=== PATIENT | male | born 1990 | race African-American/Black ===

== ENCOUNTER 2017-09-10 06:06 | Emergency (ER) | payer OTHER ==
--- NOTE | 2017-09-10 08:54 | XRAY Report ---
Procedure Date: 09/10/2017 Accession Number: [id number] / [id number] Procedure: XR - Foot 3 View LT CPT Code: FULL RESULT: EXAM: LEFT FOOT RADIOGRAPHY EXAM DATE: 09/10/2017 08:43 AM. CLINICAL HISTORY: Lateral pain. COMPARISON: None. TECHNIQUE: 3 views. FINDINGS: Bones: Normal. No fractures or bone lesions. Joints: Normal. No subluxations. Soft Tissues: Normal. No soft tissue swelling. IMPRESSION: Normal foot radiography. [facility]
--- NOTE | 2017-09-10 09:11 | ED Physician Documentation ---
PD HPI LOWER EXT INJURY - Stated complaint Stated Complaint: LEFT FOOT PX - Chief complaint Chief Complaint: Ext Problem - History obtained from History obtained from: Patient, Family - History of Present Illness PD HPI LOW EXT INJURY LOCATION: Left, Foot Where injury occurred: Home Timing - onset: Today Timing - duration: Hours Timing - details: Abrupt onset, Still present Improved by: Rest Worsened by: Moving, Palpating Associated symptoms: No: Weakness, Numbness, Tingling, Swelling Contributing factors: No: Anticoagulated Similar symptoms before: Diagnosis (plantar faciiitis) Recently seen: Not recently seen - Additional information Additional information: 27-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 Today he has had some pain in the lateral aspect of his foot and the pain in his bottom of his foot is worse than usual. He is even having trouble walking. Review of Systems Constitutional: denies: Fever Eyes: denies: Decreased vision Ears: denies: Ear pain Nose: denies: Congestion Throat: denies: Sore throat Respiratory: denies: Cough GI: denies: Vomiting Skin: denies: Rash Musculoskeletal: reports: Extremity pain, Pain with weight bearing. denies: Neck pain, Back pain Neurologic: denies: Generalized weakness, Focal weakness, Numbness PD PAST MEDICAL HISTORY - Past Medical History Past Medical History: No - Past Surgical History Past Surgical History: No - Allergies Allergies/Adverse Reactions: Allergies Allergy/AdvReac Type Severity Reaction Status Date / Time No Known Drug Allergies Allergy Verified 09/10/17 06:39 - Social History Does the pt smoke?: Yes Smoking Status: Current some day smoker Does the pt drink ETOH?: No Does the pt have substance abuse?: No - Immunizations Immunizations are current?: Yes - POLST Patient has POLST: No PD ED PE NORMAL - Vitals Vital signs reviewed: Yes (normal ) - General General: Alert and oriented X 3, No acute distress, Well developed/nourished - HEENT HEENT: Atraumatic, PERRL - Neck Neck: Supple, no meningeal sign - Respiratory Respiratory: No respiratory distress - Derm Derm: Normal color, Warm and dry, No rash - Extremities Extremities: No deformity, No edema, Other (mild tenderness to the plantar fascia) - Neuro Neuro: Alert and oriented X 3, No motor deficit, No sensory deficit, Normal speech Eye Opening: Spontaneous Motor: Obeys Commands Verbal: Oriented GCS Score: 15 - Psych Psych: Normal mood, Normal affect Results - Vitals Vitals: Vital Signs - 24 hr 09/10/17 06:10 Temperature 36.3 C L Heart Rate 64 Respiratory 14 Rate Blood Pressure 128/81 H O2 Saturation 98 Oxygen O2 Source Room air - Rads (name of study) foot Radiology: Prelim report reviewed (Impression: Normal foot radiography.), EMP read indepedently, See rad report PD MEDICAL DECISION MAKING - ED course Complexity details: reviewed results, re-evaluated patient, considered differential, d/w patient, d/w family ED course: 27-year-old male with a history of plantar fasciitis his worsening of his symptoms today he is administered dexamethasone 10 mg orally and given instructions on treatment of plantar fasciitis. - Sepsis Event Vital Signs: Vital Signs - 24 hr 09/10/17 06:10 Temperature 36.3 C L Heart Rate 64 Respiratory 14 Rate Blood Pressure 128/81 H O2 Saturation 98 Oxygen O2 Source Room air Departure - Departure Disposition: Home, Self Care Clinical Impression: Plantar fasciitis of left foot Condition: Stable Instructions: ED Plantar Fasciitis Follow-Up: MENDEL HILARIO MD [Primary Care Provider] -
[2017-09-10] MEDS ORDERED: DEXAMETHASONE 10 MG/ML VIAL PO STA (09:15)
[2017-09-10] MEDS ORDERED: CHERRY SYRUP 10 ML UDC PO ONE (09:31)
[2017-09-10 09:46] VITALS: BP 125/78
== END 2017-09-10 09:46 | disposition home or self-care (01) ==
LOC: ED 06:06
DX: M72.2 Plantar fascial fibromatosis (principal); F17.200 Nicotine dependence, unspecified, uncomplicated
CPT/HCPCS: 73630; 99283; A9270

== ENCOUNTER 2018-03-02 05:32 | Emergency (ER) | payer OTHER ==
[2018-03-02] MEDS ORDERED: KETOROLAC 60 MG/2 ML VIAL IVP STA (05:54)
[2018-03-02] MEDS ORDERED: SODIUM CHLORIDE 0.9% 1,000 ML IV ONE (05:54)
[2018-03-02] MEDS ORDERED: ONDANSETRON 4 MG/2 ML VIAL IVP STA (05:54)
--- NOTE | 2018-03-02 06:07 | ED Physician Documentation ---
PD HPI ABD PAIN - Stated complaint Stated Complaint: LIGHTHEADED/NAUSEATED - Chief complaint Chief Complaint: Neuro - History obtained from History obtained from: Patient - History of Present Illness Timing - onset: How many hours ago (1) Timing - details: Still present Quality: Cramping Location: All over / everywhere Associated symptoms: Nausea, Vomiting, Other (lightheaded) Similar symptoms before: Has not had sx before - Additional information Additional information: The patient is a 28-year-old male who presents with abdominal cramping pain, nausea and vomiting, that started about 1 hour prior to arrival. He reports associated lightheadedness. He denies diarrhea, fever, or dysuria. He last ate about 8 PM last night. No other family members are ill. He denies history of similar symptoms in the past. Review of Systems Constitutional: reports: Other (lightheaded). denies: Fever Ears: denies: Tinnitus/ringing Nose: denies: Congestion Throat: denies: Sore throat Cardiac: denies: Chest pain / pressure Respiratory: denies: Dyspnea, Cough GI: reports: Abdominal Pain, Nausea, Vomiting. denies: Diarrhea : denies: Dysuria Skin: denies: Rash Musculoskeletal: denies: Back pain, Extremity pain Neurologic: denies: Focal weakness, Numbness, Headache PD PAST MEDICAL HISTORY - Past Medical History Past Medical History: Yes Endocrine/Autoimmune: None Other Past Medical History: G6PD deficient - Past Surgical History Past Surgical History: No - Present Medications Home Medications: Ambulatory Orders Medication Instructions Recorded Confirmed Promethazine [Phenergan] 25 mg PO Q6H PRN #10 tab 03/02/18 raNITIdine [Zantac] 150 mg PO DAILY #30 tablet 03/02/18 - Allergies Allergies/Adverse Reactions: Allergies Allergy/AdvReac Type Severity Reaction Status Date / Time aspirin Allergy Unknown Verified 03/02/18 05:39 - Social History Does the pt smoke?: Yes Smoking Status: Current every day smoker Does the pt drink ETOH?: No Does the pt have substance abuse?: No - Immunizations Immunizations are current?: Yes - POLST Patient has POLST: No PD ED PE NORMAL - Vitals Vital signs reviewed: Yes (normal) - General General: Alert and oriented X 3, Well developed/nourished - HEENT HEENT: Atraumatic, Moist mucous membranes, Pharynx benign - Neck Neck: Supple, no meningeal sign, No adenopathy, No JVD - Cardiac Cardiac: RRR, No murmur - Respiratory Respiratory: No respiratory distress, Clear bilaterally - Abdomen Abdomen: Normal bowel sounds, Other (Tenderness to palpation of the left upper quadrant, without rebound tenderness or guarding.) - Back Back: No CVA TTP - Derm Derm: No rash - Extremities Extremities: No edema, No calf tenderness / cord - Neuro Neuro: Alert and oriented X 3, No motor deficit, No sensory deficit, Normal speech Results - Vitals Vitals: Vital Signs - 24 hr 03/02/18 03/02/18 05:36 06:51 Temperature 37.0 C Heart Rate 86 72 Respiratory 16 16 Rate Blood Pressure 116/77 118/65 O2 Saturation 98 98 Oxygen O2 Source Room air - Labs Labs: Laboratory Tests 03/02/18 03/02/18 03/02/18 06:05 06:15 06:15 WBC 8.0 RBC 4.70 Hgb 14.8 Hct 44.2 MCV 94.1 H MCH 31.5 H MCHC 33.5 RDW 12.3 Plt Count 243 MPV 7.6 Neut # (Auto) 7.2 H Lymph # (Auto) 0.4 L [place] # (Auto) 0.3 Eos # (Auto) 0.1 Baso # (Auto) 0.0 Absolute Nucleated RBC 0.01 Nucleated RBC % 0.1 Sodium 137 Potassium 3.8 Chloride 103 Carbon Dioxide 27 Anion Gap 7.0 BUN 12 Creatinine 0.9 Estimated GFR (MDRD) 120 Glucose 88 Calcium 9.4 Total Bilirubin 1.1 H AST 25 ALT 21 Alkaline Phosphatase 43 Total Protein 7.7 Albumin 4.8 Globulin 2.9 Albumin/Globulin Ratio 1.7 Lipase 24 Urine Color DARK YELLOW Urine Clarity CLEAR Urine pH 6.0 Ur Specific [place] >=1.030 H Urine Protein NEGATIVE Urine Glucose (UA) NEGATIVE Urine Ketones NEGATIVE Urine Occult Blood NEGATIVE Urine Nitrite NEGATIVE Urine Bilirubin NEGATIVE Urine Urobilinogen 0.2 (NORMAL) Ur Leukocyte Esterase NEGATIVE Ur Microscopic Review NOT INDICATED Urine Culture Comments NOT INDICATED PD MEDICAL DECISION MAKING - ED course Complexity details: reviewed results, re-evaluated patient, considered differential, d/w patient, d/w family ED course: The patient's presentation is most consistent with acid peptic disease versus gastritis. His presentation does not suggest an acute abdomen, pancreatitis, or biliary colic. CBC, chemistry panel, and urinalysis are all unremarkable. Treatment in the emergency department included administration of normal saline 1 L IV, Zofran 4 mg IV, ketorolac 30 mg IV, and GI cocktail orally. His symptoms markedly improved with the above treatment. He is being discharged with prescription for ranitidine and for Phenergan. 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 Departure - Departure Disposition: , Self Care Clinical Impression: Acid pepsin disease Condition: Stable Instructions: ED PUD Vs Gastritis Follow-Up: MENDEL HILARIO MD [Primary Care Provider] - Prescriptions: Promethazine [Phenergan] 25 mg PO Q6H PRN #10 tab PRN Reason: Nausea / Vomiting raNITIdine [Zantac] 150 mg PO DAILY #30 tablet Comments: Minimize coffee, yecenia, and spicy foods. Take ranitidine twice daily as prescribed. You can use liquid antacid, such as Maalox or Mylanta if you develop recurrent symptoms. You can use Phenergan as prescribed if needed for nausea. He should follow-up with your primary physician within 1-2 weeks. Call to schedule an appointment. Return to the emergency department if you develop increasing abdominal pain, persistent vomiting, or otherwise worsening symptoms. Discharge Date/Time: 03/02/18 07:32
[2018-03-02 06:39] LABS: BASOPHILS % (AUTO) 0.1 %; EOSINOPHILS # (AUTO) 0.1 10^3/uL (0.0-0.7); EOSINOPHILS % (AUTO) 1.1 %; HGB - HEMOGLOBIN 14.8 g/dL (14.0-18.0); LYMPHOCYTES # (AUTO) 0.4 10^3/uL (1.5-3.5); LYMPHOCYTES % (AUTO) 5.2 %; MEAN CORPUSCULAR HEMOGLOBIN 31.5 pg (27.0-31.0); MEAN CORPUSCULAR HGB CONC 33.5 g/dL (32.0-36.0); MEAN CORPUSCULAR VOLUME 94.1 fL (80.0-94.0); MEAN PLATELET VOLUME 7.6 fL (7.4-11.4); MONOCYTES # (AUTO) 0.3 10^3/uL (0.0-1.0); MONOCYTES % (AUTO) 3.9 %; NEUTROPHILS # (AUTO) 7.2 10^3/uL (1.5-6.6); NEUTROPHILS % (AUTO) 89.7 %; PLT - PLATELET COUNT 243 10^3/uL (130-450); RED CELL DISTRIBUTION WIDTH 12.3 % (12.0-15.0)
[2018-03-02 06:48] LABS: BILIRUBIN,URINE NEGATIVE (NEGATIVE); GLUCOSE, URINE (UA) NEGATIVE (NEGATIVE); KETONES,URINE (UA) NEGATIVE (NEGATIVE); LEUKOCYTE ESTERASE, URINE NEGATIVE (NEGATIVE); NITRITE,URINE NEGATIVE (NEGATIVE); OCCULT BLOOD,URINE NEGATIVE (NEGATIVE); PROTEIN,URINE NEGATIVE (NEGATIVE); UROBILINOGEN,URINE 0.2 (NORMAL) E.U./dL (NORMAL)
[2018-03-02 06:49] LABS: CLARITY,URINE CLEAR (CLEAR)
[2018-03-02 06:52] VITALS: BP 118/65
[2018-03-02 06:52] LABS: ALBUMIN 4.8 g/dL (3.2-5.5); ALBUMIN/GLOBULIN RATIO 1.7 (1.0-2.2); BILIRUBIN,TOTAL 1.1 mg/dL (0.2-1.0); CALCIUM 9.4 mg/dL (8.5-10.3); CREATININE 0.9 mg/dL (0.6-1.2); TOTAL PROTEIN 7.7 g/dL (6.7-8.2)
[2018-03-02] MEDS ORDERED: LIDOCAINE VISCOUS 2% 15 ML UDC MM STA (07:06)
[2018-03-02] MEDS ORDERED: MAG HYDROX/AL HYDROX/SIMETH 30 ML UDC PO STA (07:06)
== END 2018-03-02 07:32 | disposition home or self-care (01) ==
LOC: ED 05:32
DX: K30 Functional dyspepsia (principal); F17.200 Nicotine dependence, unspecified, uncomplicated
CPT/HCPCS: 36415; 80053; 81003; 83690; 85025; 96361; 96374; 99283; 99284; A9270; 81001; 87086

== ENCOUNTER 2019-03-04 15:25 | Emergency (ER) | payer OTHER ==
[2019-03-04] MEDS: DEXAMETHASONE 10 MG/ML VIAL PO STA (16:18)
[2019-03-04] MEDS: KETOROLAC 60 MG/2 ML VIAL IM STA (16:18)
--- NOTE | 2019-03-04 16:19 | ED Physician Documentation ---
PD HPI BACK PAIN - Stated complaint Stated Complaint: BACK PX - Chief complaint Chief Complaint: Back Pain - History obtained from History obtained from: Patient - History of Present Illness Timing - onset: Today Timing - duration: Days (1) Timing - details: Gradual onset Pain level max: 8 Pain level now: 8 Location: Lower, Right, Left Quality: Pain, Spasm Associated symptoms: No: Fever, Weakness, Numbness, Incontinent of urine, Unable to urinate, Hematuria, Incontinent of stool Improves with: Rest Worsened by: Movement - Additional information Additional information: 29-year-old male states that he has had back spasms intermittently for several years. He states that today he felt something "slip" in his back and then a sudden onset of sharp pain. Feels like his back is spasming. Has not taken anything for this. Worse with movement and better with rest. no trauma. no IVDA. Review of Systems Ten Systems: 10 systems reviewed and negative Constitutional: denies: Fever, Chills GI: denies: Nausea, Vomiting, Diarrhea Skin: denies: Rash Musculoskeletal: denies: Neck pain Neurologic: denies: Focal weakness, Numbness PD PAST MEDICAL HISTORY - Past Medical History Past Medical History: Yes Endocrine/Autoimmune: None - Past Surgical History Past Surgical History: No - Present Medications Home Medications: Ambulatory Orders Medication Instructions Recorded Confirmed Promethazine [Phenergan] 25 mg PO Q6H PRN #10 tab 03/02/18 raNITIdine [Zantac] 150 mg PO DAILY #30 tablet 03/02/18 Cyclobenzaprine [Flexeril] 10 mg PO TID PRN #20 tablet 03/04/19 Meloxicam [Mobic] 15 mg PO DAILY PRN #20 tablet 03/04/19 - Allergies Allergies/Adverse Reactions: Allergies Allergy/AdvReac Type Severity Reaction Status Date / Time aspirin Allergy Unknown Verified 03/04/19 15:46 - Social History Does the pt smoke?: Yes Smoking Status: Current every day smoker Does the pt drink ETOH?: No Does the pt have substance abuse?: No - Immunizations Immunizations are current?: Yes - POLST Patient has POLST: No PD ED PE NORMAL - Vitals Vital signs reviewed: Yes - General General: Alert and oriented X 3, No acute distress, Well developed/nourished - HEENT HEENT: PERRL, Moist mucous membranes - Neck Neck: Supple, no meningeal sign - Cardiac Cardiac: RRR - Respiratory Respiratory: No respiratory distress, Clear bilaterally - Abdomen Abdomen: Soft, Non tender, Non distended - Back Back: No spinal TTP, Other (back spasm B low lumbar. NVI. no step off or deformity.) - Derm Derm: Warm and dry - Extremities Extremities: No edema, Other (Normal bilateral lower extremity patellar and ankle jerk reflexes. Normal great toe extension bilaterally. no saddle anesthesia) - Neuro Neuro: Alert and oriented X 3, No motor deficit, No sensory deficit - Psych Psych: Normal mood, Normal affect Results - Vitals Vitals: Vital Signs - 24 hr 03/04/19 03/04/19 15:44 16:36 Temperature 36.8 C Heart Rate 84 82 Respiratory 14 14 Rate Blood Pressure 130/80 125/78 O2 Saturation 100 100 Oxygen O2 Source Room air PD MEDICAL DECISION MAKING - ED course Complexity details: reviewed results, re-evaluated patient, considered differential (No cauda equina, no spinal epidural abscess, no fracture, no aortic dissection or evidence of aneursym rupture), d/w patient ED course: 29-year-old male presents to the emergency department with back spasm. Will place on muscle relaxants and anti-inflammatories for home. No evidence of cauda equina, epidural abscess. No sciatica. No evidence of fracture. Patient counseled regarding signs and symptoms for which I believe and urgent re-evalua tion would be necessary. Patient with good understanding of and agreement to plan and is comfortable going home at this time This document was made in part using voice recognition software. While efforts are made to proofread this document, sound alike and grammatical errors may occur. Departure - Departure Disposition: 01 Home, Self Care Clinical Impression: Back spasm Condition: Good Instructions: ED Spasm Back No Trauma Follow-Up: MENDEL HILARIO MD [Primary Care Provider] - Within 1 week Prescriptions: Cyclobenzaprine [Flexeril] 10 mg PO TID PRN #20 tablet PRN Reason: Spasms Meloxicam [Mobic] 15 mg PO DAILY PRN #20 tablet PRN Reason: pain Comments: Return if you worsen. Do not drive or operate heavy machinery while on flexeril. This should improve over the next few days. Forms: Activity restrictions Discharge Date/Time: 03/04/19 16:36
[2019-03-04] MEDS: CHERRY SYRUP 10 ML UDC PO ONE (16:23)
[2019-03-04 16:36] VITALS: BP 125/78
== END 2019-03-04 16:36 | disposition home or self-care (01) ==
LOC: ED 15:25
DX: M62.830 Muscle spasm of back (principal); F17.200 Nicotine dependence, unspecified, uncomplicated
CPT/HCPCS: 96372; 99283; 99284; A9270

== ENCOUNTER 2019-04-14 11:10 | Emergency (ER) | payer OTHER ==
[2019-04-14 11:17] VITALS: BP 112/58
[2019-04-14 11:51] LABS: RAPID STREP SCREEN Negative (Negative)
[2019-04-14] MEDS ORDERED: DEXAMETHASONE 10 MG/ML VIAL PO STA (12:41)
[2019-04-14] MEDS ORDERED: CHERRY SYRUP 10 ML UDC PO ONE (12:41)
--- NOTE | 2019-04-14 12:44 | ED Physician Documentation ---
History of Present Illness - Stated complaint Stated Complaint: SORE THROAT - Chief complaint Chief Complaint: Heent - History obtained from History obtained from: Patient - History of Present Illness Timing: How many days ago (2) Pain level max: 7 Pain level now: 5 - Additonal information Additional information: 29-year-old male presents to the emergency department with a sore throat for the past 2 days. Has had subjective fevers at home as well. No cough. No vomiting. Worse with swallowing. Nothing makes it better. No abdominal pain. No rhinorrhea or congestion. Immunizations up-to-date. Otherwise healthy. Review of Systems Constitutional: reports: Fever, Chills Throat: reports: Sore throat Respiratory: denies: Cough, Wheezing GI: denies: Vomiting, Diarrhea Skin: denies: Rash Musculoskeletal: denies: Neck pain, Back pain Neurologic: denies: Headache PD PAST MEDICAL HISTORY - Past Medical History Past Medical History: No Endocrine/Autoimmune: None - Past Surgical History Past Surgical History: No - Present Medications Home Medications: Ambulatory Orders Medication Instructions Recorded Confirmed Promethazine [Phenergan] 25 mg PO Q6H PRN #10 tab 03/02/18 raNITIdine [Zantac] 150 mg PO DAILY #30 tablet 03/02/18 Cyclobenzaprine [Flexeril] 10 mg PO TID PRN #20 tablet 03/04/19 Meloxicam [Mobic] 15 mg PO DAILY PRN #20 tablet 03/04/19 Amox/Clav 875/125 [Augmentin] 1 tab PO Q12H #20 tablet 04/14/19 - Allergies Allergies/Adverse Reactions: Allergies Allergy/AdvReac Type Severity Reaction Status Date / Time aspirin Allergy Unknown Verified 04/14/19 11:13 - Social History Does the pt smoke?: Yes Smoking Status: Current every day smoker Does the pt drink ETOH?: No Does the pt have substance abuse?: No - Family History Family history: reports: Non contributory - Immunizations Immunizations are current?: Yes - POLST Patient has POLST: No PD ED PE NORMAL - Vitals Vital signs reviewed: Yes - General General: Alert and oriented X 3, No acute distress, Well developed/nourished - HEENT HEENT: PERRL, Ears normal, Moist mucous membranes, Other (Posterior pharyngeal erythema with tonsillar exudates. Uvula midline. Normal phonation. No trismus.) - Neck Neck: Supple, no meningeal sign, Other (Shotty anterior lymphadenopathy) - Cardiac Cardiac: RRR - Respiratory Respiratory: Clear bilaterally - Abdomen Abdomen: Soft, Non tender, Non distended - Derm Derm: Warm and dry, No rash - Neuro Neuro: Alert and oriented X 3 - Psych Psych: Normal mood, Normal affect Results - Vitals Vitals: Vital Signs - 24 hr 04/14/19 11:13 Temperature 37.3 C Heart Rate 82 Respiratory 14 Rate Blood Pressure 112/58 L O2 Saturation 96 Oxygen O2 Source Room air - Labs Labs: Laboratory Tests 04/14/19 11:17 Group A Strep Rapid Negative PD MEDICAL DECISION MAKING - ED course Complexity details: reviewed results, considered differential, d/w patient ED course: Patient with what appears to be clinically strep pharyngitis. We will treat him for this. He is well-appearing, nontoxic. Afebrile. Given dexamethasone here. No evidence of a peritonsillar or retropharyngeal abscess. Patient counseled regarding signs and symptoms for which I believe and urgent re- evaluation would be necessary. Patient with good understanding of and agreement to plan and is comfortable going home at this time This document was made in part using voice recognition software. While efforts are made to proofread this document, sound alike and grammatical errors may occur. Departure - Departure Disposition: 01 Home, Self Care Clinical Impression: Pharyngitis Qualifiers: Pharyngitis/tonsillitis etiology: unspecified etiology Qualified Code(s): J02.9 - Acute pharyngitis, unspecified Condition: Good Instructions: ED Strep Pharyngitis Poss Follow-Up: MENDEL HILARIO MD [Primary Care Provider] - Within 1 week (if not better) Prescriptions: Amox/Clav 875/125 [Augmentin] 1 tab PO Q12H #20 tablet Comments: Return if you worsen. Drink plenty of fluids and rest. Take all antibiotics until gone. Forms: Activity restrictions Discharge Date/Time: 04/14/19 12:48
== END 2019-04-14 12:48 | disposition home or self-care (01) ==
LOC: ED 11:10
DX: J02.9 Acute pharyngitis, unspecified (principal); F17.200 Nicotine dependence, unspecified, uncomplicated
CPT/HCPCS: 87070; 87077; 87430; 99283; 99284; A9270